=== PATIENT | female | born 1975 ===

== ENCOUNTER 2018-02-05 20:52 | Inpatient (IN) | payer OTHER ==
[2018-02-05 21:24] LABS: MEAN CELL VOLUME 86.9 fl (80.0-105.0); MEAN CORPUSCULAR HEMOGLOBIN 30.4 pg (25.0-35.0); MEAN CORPUSCULAR HGB CONC 34.9 g/dl (31.0-37.0); MEAN PLATELET VOLUME 9.7 fl (7.0-11.0); RBC 4.28 10^6/uL (3.5-6.1); RED CELL DISTRIBUTION WIDTH 13.9 % (11.5-14.5); WHITE BLOOD COUNT 8.8 10^3/ul (4.5-11.0)
[2018-02-05 21:26] LABS: ALB/GLOB RATIO 1.4 (1.1-1.8); ALBUMIN 4.5 g/dL (3.0-4.8); ALT/SGPT 29 U/L (7-56); AST/SGOT 26 U/L (14-36); BLOOD UREA NITROGEN 13 mg/dL (7-21); CALCIUM 9.9 mg/dL (8.4-10.5); GFR AFRICAN-AMERICAN > 60; GFR NON-AFRICAN AMERICAN > 60
--- NOTE | 2018-02-05 21:33 | ED PDOC ---
Arrival/HPI - General Chief Complaint: Seizure Time Seen by Provider: 02/05/18 20:59 Historian: Patient - History of Present Illness Narrative History of Present Illness (Text): 02/05/18 20:55 Gris Monroe is a 42 year old female who presents to the Emergency department brought in by EMS status post syncopal episode prior to arrival. According to , patient had just eaten frozen pizza and fell to the ground. states patient was unresponsive. EMS was notified and patient was subsequently transferred to the hospital for further evaluation. On arrival to ER, patient remains unconscious with tremors noted. Limited HPI and ROS secondary to patient's altered mental status. Time/Duration: Prior to Arrival Symptom Onset: Sudden Symptom Course: Unchanged Activities at Onset: Light Context: Home Past Medical History - Provider Review Nursing Documentation Reviewed: Yes - Infectious Disease Hx of Infectious Diseases: None - Psychiatric Hx Substance Use: No - Anesthesia Hx Anesthesia: No Family/Social History - Physician Review Nursing Documentation Reviewed: Yes Family/Social History: Unknown Family HX Smoking Status: Never Smoked Hx Alcohol Use: No Hx Substance Use: No Allergies/Home Meds Allergies/Adverse Reactions: Allergies No Known Allergies Allergy (Unverified 02/05/18 21:00) Home Medications: Home Meds Medication Instructions Recorded Confirmed No Known Home Med 02/05/18 02/05/18 Review of Systems - Review of Systems Systems not reviewed;Unavailable: Altered Mental Status Cardiovascular: Syncope Physical Exam Vital Signs Reviewed: Yes Vital Signs Temp Pulse Resp BP Pulse Ox 02/05/18 21:37 99.1 F 02/05/18 21:02 99 H 19 147/91 H 100 Temperature: Afebrile Blood Pressure: Normal Pulse: Regular Respiratory Rate: Normal Pain Distress: None Mental Status: Positive for: other (Unresponsive) Finger Stick Blood Glucose: 88 - Systems Exam Head: Present: Atraumatic, Normocephalic Pupils: Present: PERRL Conjunctiva: Present: Normal Ears: Present: Normal, NORMAL TM, Normal Canal. No: Erythema, TM Bulging, Fluid , TM Perf Mouth: Present: Moist Mucous Membranes Pharnyx: Present: Normal. No: ERYTHEMA, EXUDATE, TONSILS ENLARGED, Peritonsilar Swelling, Uvular Deviation, Muffled/Hoarse Voice, Strider, Soft Palate/Uvular Edema Nose (External): Present: Atraumatic Nose (Internal): Present: Normal Inspection Neck: Present: Normal Range of Motion. No: Meningeal Signs, MIDLINE TENDERNESS , Paraspinal Tenderness Respiratory/Chest: Present: Clear to Auscultation, Good Air Exchange. No: Respiratory Distress, Accessory Muscle Use Cardiovascular: Present: Regular Rate and Rhythm, Normal S1, S2. No: Murmurs Abdomen: Present: Normal Bowel Sounds. No: Tenderness, Distention, Peritoneal Signs Upper Extremity: Present: Normal Inspection. No: Cyanosis, Edema Lower Extremity: Present: Normal Inspection. No: Edema Neurological: Present: Other (tremors lower extremities) Skin: Present: Warm, Dry, Normal Color. No: Rashes Psychiatric: Present: Lethargic Medical Decision Making ED Course and Treatment: 02/05/18 20:55 Impression: 42 year old female brought in by EMS s/p syncopal episode prior to arrival. Plan: -- CT Head w/o contrast -- EKG -- Chest X-ray -- Labs, cardiac enzymes -- Ativan -- Reassess and disposition Progress Notes: On arrival to Emergency department, pt placed on monitor. IV site established, IV Ativan given to control seizure. 02/05/18 21:30 Reviewed EKG, sinus tachycardia at 106 bpm. Non-specific ST/T wave changes. 02/05/18 22:03 Reviewed radiology, Chest X-ray shows no acute processes. CT Head shows: Brain: No intracranial hemorrhage. No mass. No definite edema. Ventricles: No hydrocephalus. Bones/joints: No acute fracture. Soft tissues: Unremarkable. Sinuses: Scattered minimal mucosal thickening. RIGHT maxillary retention cyst. Mastoid air cells: No mastoid effusion. Orbits: Unremarkable as visualized. IMPRESSION: 1. No definite acute intracranial abnormality. 2. Incidental/non-acute findings are described above. 02/05/18 22:10 Case discussed with senior medical director computer console operator, who is aware and agrees with plan. 02/05/18 22:[address] Macedo, who is aware and agrees with plan. Accepts pt in to hospitalist service. Pt will go to Telemetry syncope and possible new onset seizure. - Lab Interpretations Lab Results: 02/05/18 20:55 02/05/18 20:55 Lab Results 02/05/18 20:55: TSH 3rd Generation 3.14 02/05/18 20:55: Phosphorus 2.6, Magnesium 2.0 02/05/18 20:55: PT 10.6, INR 0.93, APTT 30.4 02/05/18 20:55: WBC 8.8, RBC 4.28, Hgb 13.0, Hct 37.2, MCV 86.9, MCH 30.4, MCHC 34.9, RDW 13.9, Plt Count 206, MPV 9.7 02/05/18 20:55: Sodium 143, Potassium 3.5 L, Chloride 107, Carbon Dioxide 24, Anion Gap 16, BUN 13, Creatinine 0.7, Est GFR ( Amer) > 60, Est GFR (Non- Af Amer) > 60, Random Glucose 105, Calcium 9.9, Total Bilirubin < 0.1 L, AST 26 , ALT 29, Alkaline Phosphatase 83, Lactate Dehydrogenase 379, Total Creatine Kinase 52, Troponin I < 0.01, Total Protein 7.8, Albumin 4.5, Globulin 3.3, Albumin/Globulin Ratio 1.4 I have reviewed the lab results: Yes - RAD Interpretation Radiology Orders: 02/05/18 21:00 HEAD W/O CONTRAST [CT] Stat 02/05/18 21:03 CHEST PORTABLE [RAD] Stat Quality Control Systems Manager: Radiologist - EKG Interpretation Interpreted by ED Physician: Yes Type: 12 lead EKG - Medication Orders Current Medication Orders: Cyanocobalamin (Vitamin B12 100 Mcg Tab) 100 mcg PO DAILY [facility] Enoxaparin Sodium (Lovenox) 40 mg SC DAILY [facility] PRN Reason: Protocol Folic Acid (Folic Acid) 1 mg PO DAILY [facility] Meclizine HCl (Antivert) 12.5 mg PO TID PRN PRN Reason: Dizziness Pantoprazole Sodium (Protonix Ec Tab) 40 mg PO DAILY [facility] Discontinued Medications Potassium Chloride (Potassium Chloride 10 Meq/100 Ml) 10 meq in 100 mls @ 50 mls/hr IVPB Q2H NEREIDA Stop: 02/06/18 03:14 Last Admin: 02/06/18 02:45 Dose: 50 mls/hr eMAR Start Stop Document 02/06/18 02:45 TTC (Rec: 02/06/18 02:45 TTC [id number]) Intravenous Solution Start Date 02/06/18 Start Time 02:45 End Date 02/06/18 End time 04:45 Total Infusion Time 120 Lorazepam (Ativan) 2 mg IVP ONCE ONE Stop: 02/05/18 21:05 Last Admin: 02/05/18 21:00 Dose: 2 mg IVP Administration Document 02/05/18 21:00 JOL (Rec: 02/05/18 21:12 JOL [id number]) Charges for Administration # of IVP Administrations 1 Lorazepam (Ativan) 2 mg IVP ONCE ONE Stop: 02/05/18 22:33 Last Admin: 02/05/18 22:35 Dose: 2 mg IVP Administration Document 02/05/18 22:35 JOL (Rec: 02/05/18 23:07 JOL [facility]) Charges for Administration # of IVP Administrations 1 - Scribe Statement The provider has reviewed the documentation as recorded by the Scribghazala Garber All medical record entries made by the Scribe were at my direction and personally dictated by me. I have reviewed the chart and agree that the record accurately reflects my personal performance of the history, physical exam, medical decision making, and the department course for this patient. I have also personally directed, reviewed, and agree with the discharge instructions and disposition. Disposition/Present on Arrival - Present on Arrival Any Indicators Present on Arrival: No History of DVT/PE: No History of Uncontrolled Diabetes: No Urinary Catheter: No History of Decub. Ulcer: No History Surgical Site Infection Following: None - Disposition Have Diagnosis and Disposition been Completed?: Yes Diagnosis: Syncope, New onset seizure Disposition: HOSPITALIZED Disposition Time: 22:21 Patient Plan: Observation Patient Problems: Current Active Problems Problem Status Onset New onset seizure Acute Syncope Acute Condition: STABLE
[2018-02-05 21:37] LABS: TROPONIN I < 0.01 ng/mL
[2018-02-05 21:39] LABS: INR 0.93 (0.93-1.08); PARTIAL THROMBOPLASTIN TIME 30.4 Seconds (25.1-36.5); PROTHROMBIN TIME 10.6 SECONDS (9.4-12.5)
--- NOTE | 2018-02-05 21:58 | CT ---
EXAM: CT Head Without Intravenous Contrast CLINICAL HISTORY: 42 years old, female; Signs and symptoms; Other: Seizure TECHNIQUE: Axial computed tomography images of the head/brain without intravenous contrast. All CT scans at this facility use one or more dose reduction techniques, viz.: automated exposure control; ma/kV adjustment per patient size (including targeted exams where dose is matched to indication; i.e. head); or iterative reconstruction technique. Coronal and sagittal reformatted images were created and reviewed. COMPARISON: No relevant prior studies available. FINDINGS: Brain: No intracranial hemorrhage. No mass. No definite edema. Ventricles: No hydrocephalus. Bones/joints: No acute fracture. Soft tissues: Unremarkable. Sinuses: Scattered minimal mucosal thickening. RIGHT maxillary retention cyst. Mastoid air cells: No mastoid effusion. Orbits: Unremarkable as visualized. IMPRESSION: 1. No definite acute intracranial abnormality. 2. Incidental/non-acute findings are described above.
--- NOTE | 2018-02-05 23:06 | CP.PCM.HP ---
<Pebbles Wolff - Last Filed: 02/06/18 03:41> History of Present Illness - History of Present Illness History of Present Illness: PGY-2 H&P for hospitalist service 42 yo female from [place] who presents to the Emergency department brought in by EMS status post syncopal episode prior to arrival. According to , patient had just eaten frozen pizza and fell to the ground. states patient was unresponsive with generalized tonic clonic movements. EMS was notified and patient was subsequently transferred to the hospital for further evaluation. Patient states that she had a similar episode previously however seh did nit loss consciousness but began to shake. Per ED note, on arrival to ER , patient remained unconscious with generalized tonic clonic movements. Patient states that she feels weak, and dizzy especially with movement. She denies chest pain, sob, abd pain, n/v, urinary symptoms. PMH: family history: mother thyroid disease, diabetes, father heart disease social history: denies smoking, alcohol use, illicit drug use allergy: seasonal home meds: propanolol Review of Systems - Review of Systems All systems: reviewed and no additional remarkable complaints except Past Patient History - Infectious Disease Hx of Infectious Diseases: None - Past Social History Smoking Status: Never Smoked - PSYCHIATRIC Hx Substance Use: No - SURGICAL HISTORY Hx Surgeries: No - ANESTHESIA Hx Anesthesia: No Meds Allergies/Adverse Reactions: Allergies Allergy/AdvReac Type Severity Reaction Status Date / Time No Known Allergies Allergy Unverified 02/05/18 21:00 Physical Exam - Constitutional Appears: No Acute Distress - Head Exam Head Exam: ATRAUMATIC, NORMAL INSPECTION, NORMOCEPHALIC - Eye Exam Eye Exam: EOMI, Normal appearance - ENT Exam ENT Exam: Mucous Membranes Moist - Respiratory Exam Respiratory Exam: Clear to Auscultation Bilateral, NORMAL BREATHING PATTERN. absent: Rhonchi, Wheezes, Respiratory Distress - Cardiovascular Exam Cardiovascular Exam: REGULAR RHYTHM, +S1, +S2. absent: Diastolic murmur, Systolic Murmur - GI/Abdominal Exam GI & Abdominal Exam: Normal Bowel Sounds, Soft. absent: Distended, Tenderness - Extremities Exam Extremities exam: Positive for: normal inspection - Back Exam Back exam: NORMAL INSPECTION - Neurological Exam Neurological exam: Alert, Oriented x3 - Skin Skin Exam: Dry, Intact, Normal Color, Warm Results - Vital Signs Recent Vital Signs: Last Vital Signs Temp 99.1 F 02/05/18 21:37 Pulse 99 H 02/05/18 21:02 Resp 19 02/05/18 21:02 BP 147/91 H 02/05/18 21:02 Pulse Ox 100 02/05/18 21:02 - Labs Result Diagrams: 02/05/18 20:55 02/05/18 20:55 Assessment & Plan - Assessment and Plan (Free Text) Assessment: 42 yo female from [place] who presents s/p syncopal episode and possible seizure. Plan: 1. syncopal episode with possible seizure - CT head showed no acute findings - patient received ativan in ED - start vit B12, folate - meclizine prn - orthostatics ordered - TSH, mag, and phos ordered - neurochecks - consider cardio work up for syncope - neuro consult 2. hypokalemia - 3.5 on admission - replaced - repeat AM labs ppx GI- protonix DVT- lovenox <Berna Macedo - Last Filed: 02/06/18 06:28> Present on Admission - Present on Admission Any Indicators Present on Admission: No History of DVT/PE: No History of Uncontrolled Diabetes: No Urinary Catheter: No Decubitus Ulcer Present: No Results - Vital Signs Recent Vital Signs: Last Vital Signs Temp 98.2 F 02/06/18 02:00 Pulse 71 02/06/18 02:00 Resp 19 02/06/18 02:00 BP 158/78 H 02/06/18 02:00 Pulse Ox 96 02/06/18 02:00 - Labs Result Diagrams: 02/05/18 20:55 02/05/18 20:55 Attending/Attestation - Attestation I have personally seen and examined this patient.: Yes I have fully participated in the care of the patient.: Yes I have reviewed all pertinent clinical information: Yes Notes (Text): 02/06/18 06:26 Patient was seen when she was in the ER. Agree with history, physical examination, assessment and plan. syncope. S/P fall. Head contusion. Dizziness- on and off 4 months. Sinsu tachycardia on EKG. Tonic clonic movement extremitities. Loss of consciousness. Hypokalemia. History of x 1. History of sinusitis. History of hypotension x 2. History of heart burn. History of being on Propranolol. History of low back pain, right sciatica. Family history DM-Mother , Aunt. Family history thyroid disease-Mother. Family history of heart disease-Father. Originally from [place], with child. LMP:Now. .
[2018-02-06 07:00] LABS: BASO # 0.02 K/mm3 (0.0-2.0); BASO % 0.3 % (0.0-3.0); EOS # 0.1 (0.0-0.7); EOS % 1.4 % (1.5-5.0); GRAN # 2.71 (1.4-6.5); GRAN % 47.3 % (50.0-68.0); HEMOGLOBIN 11.2 g/dL (12.0-16.0); LYMPH # 2.5 (1.2-3.4); LYMPH % 43.1 % (22.0-35.0); MEAN CELL VOLUME 86.8 fl (80.0-105.0); MEAN CORPUSCULAR HEMOGLOBIN 29.6 pg (25.0-35.0); MEAN PLATELET VOLUME 9.8 fl (7.0-11.0); MONO # 0.5 (0.1-0.6); MONO % 7.9 % (1.0-6.0); RBC 3.79 10^6/uL (3.5-6.1); RED CELL DISTRIBUTION WIDTH 13.8 % (11.5-14.5); WHITE BLOOD COUNT 5.7 10^3/ul (4.5-11.0)
[2018-02-06 07:16] LABS: ALB/GLOB RATIO 1.2 (1.1-1.8); ALBUMIN 3.5 g/dL (3.0-4.8); ALT/SGPT 23 U/L (7-56); AST/SGOT 20 U/L (14-36); BLOOD UREA NITROGEN 10 mg/dL (7-21); CALCIUM 9.5 mg/dL (8.4-10.5); GFR AFRICAN-AMERICAN > 60; GFR NON-AFRICAN AMERICAN > 60
--- NOTE | 2018-02-06 08:26 | RAD ---
HISTORY: seizure COMPARISON: No prior. FINDINGS: LUNGS: No active pulmonary disease. PLEURA: No significant pleural effusion identified, no pneumothorax apparent. CARDIOVASCULAR: Normal. OSSEOUS STRUCTURES: No significant abnormalities. VISUALIZED UPPER ABDOMEN: Normal. OTHER FINDINGS: None. IMPRESSION: No active disease.
--- NOTE | 2018-02-06 10:03 | CARD ---
APPROVED REPORT EKG Measurement Heart [id number] <Conclusion> Sinus tachycardia Otherwise normal ECG
--- NOTE | 2018-02-06 10:38 | MRI ---
PROCEDURE: MRI BRAIN WITHOUT CONTRAST HISTORY: New onset seizure COMPARISON: Noncontrast head CT from 02/05/2018. TECHNIQUE: Multiplanar, multisequence MR images of the brain were obtained without intravenous contrast enhancement. FINDINGS: HEMORRHAGE: None DWI: No evidence of an acute or early subacute infarction. BRAIN PARENCHYMA: Renee-white matter differentiation is preserved. There is no mass, mass effect or abnormal extra-axial fluid collection. There is no territorial infarction. The midline sagittal structures are normal. The hippocampi by are symmetric with normal signal intensity and architecture. There is no evidence for mesial temporal sclerosis. VENTRICLES: The ventricles are normal in size, shape and configuration. CRANIUM: There is normal bone marrow signal pattern. ORBITS: Grossly unremarkable. PARANASAL SINUSES/MASTOIDS: There is mild mucosal thickening in the paranasal sinuses, worse in the ethmoid air cells and a retention cyst/ polyp in the right maxillary sinus. VASCULAR SYSTEM: There are normal signal voids in the larger intracranial arteries. OTHER FINDINGS: None. IMPRESSION: Normal non contrast MRI of the brain.
--- NOTE | 2018-02-06 10:53 | MRI ---
PROCEDURE: Magnetic Resonance Angiography Brain HISTORY: New onset seizure COMPARISON: None available. TECHNIQUE: 3D time of flight MR angiography of the intracranial arteries was performed. Rotating maximum intensity projection images were generated. FINDINGS: INTERNAL CAROTID ARTERIES: Normal flow related signal. The skull base, petrous, cavernous and supraclinoid segments are bilaterally widely patient. ANTERIOR CEREBRAL ARTERIES: Normal flow related signal. The right A1 segment is hypoplastic, an anatomic variant with A1 and A2 segments are widely patent. Smaller distal branches unremarkable, as visualized. MIDDLE CEREBRAL ARTERIES: Normal flow related signal. M1 and M2 segments are widely patent. Perisylvian branches grossly symmetric. POSTERIOR CIRCULATION: Basilar Artery: Normal flow related signal. Distal Vertebral Arteries: Normal flow related signal. Posterior Cerebral Arteries: Normal flow related signal. Posterior Inferior Cerebellar Arteries: Normal flow related signal. ANEURYSM/ VASCULAR MALFORMATIONS: None. OTHER FINDINGS: None. IMPRESSION: Normal MR angiography of the brain.
--- NOTE | 2018-02-06 11:15 | MRI ---
PROCEDURE: MR Angiography of the neck without contrast HISTORY: New onset seizure COMPARISON: None available. TECHNIQUE: 3D [id number] angiography of the neck was performed. Rotating maximum intensity projection images of the cervical carotid and vertebral arteries were generated. The origins of the common carotid arteries were not visualized, which is a limitation inherent to the non-contrast time of flight technique. FINDINGS: RIGHT CAROTID ARTERIES: Common Carotid Artery: Normal. Carotid Bifurcation: Normal. Internal Carotid Artery:Normal. External Carotid Artery (proximal branches): Normal. LEFT CAROTID ARTERIES: Common Carotid Artery: Normal. Carotid Bifurcation: Normal. Internal Carotid Artery:Normal. External Carotid Artery (proximal branches): Normal. VERTEBRAL ARTERIES: Right Vertebral Artery: Normal. Left Vertebral Artery: Normal. OTHER FINDINGS: None. IMPRESSION: Normal MR Angiography of the neck.
[2018-02-06] MEDS: Pantoprazole 40 mg EC Tab PO SCH (11:23)
[2018-02-06] MEDS: Enoxaparin 40 mg Syringe SC SCH (11:23)
--- NOTE | 2018-02-06 16:38 | CP.PCM.CON ---
History of Present Illness - History of Present Illness History of Present Illness: Ms. Monroe is a 42-year-old woman with no significant past medical history, who has apparently been fasting and not drinking more than 8-10 ounces of water daily for the last month, who states that she went to watch TV with her yesterday and she felt dizzy, light-headed, nauseous, and lost consciousness. Her witnessed her having generalized tonic-clonic movements. She did not wake up for several minutes. She recalls waking up in the ED and was confused and felt very tired. She did not have any urinary/bowel incontinence, injuries or tongue biting. MRI/MRA brain/neck were normal. EEG was normal. Review of Systems - Review of Systems All systems: reviewed and no additional remarkable complaints except Past Patient History - Infectious Disease Hx of Infectious Diseases: None - Past Social History Smoking Status: Never Smoked - MUSCULOSKELETAL/RHEUMATOLOGICAL Hx Falls: No - PSYCHIATRIC Hx Substance Use: No - SURGICAL HISTORY Hx Surgeries: No - ANESTHESIA Hx Anesthesia: No Meds Allergies/Adverse Reactions: Allergies Allergy/AdvReac Type Severity Reaction Status Date / Time No Known Allergies Allergy Unverified 02/05/18 21:00 - Medications Medications: Current Medications Acetaminophen (Tylenol 325mg Tab) 650 mg PO Q6H PRN PRN Reason: Headache Cyanocobalamin (Vitamin B12 100 Mcg Tab) 100 mcg PO DAILY [facility] Last Admin: 02/06/18 11:22 Dose: 100 mcg Enoxaparin Sodium (Lovenox) 40 mg SC DAILY [facility] PRN Reason: Protocol Last Admin: 02/06/18 11:23 Dose: 40 mg Folic Acid (Folic Acid) 1 mg PO DAILY [facility] Last Admin: 02/06/18 11:22 Dose: 1 mg Lorazepam (Ativan) 1 mg IVP Q2H PRN; Protocol PRN Reason: Seizures Meclizine HCl (Antivert) 12.5 mg PO TID PRN PRN Reason: Dizziness Pantoprazole Sodium (Protonix Ec Tab) 40 mg PO DAILY [facility] Last Admin: 02/06/18 11:23 Dose: 40 mg Physical Exam - Constitutional Appears: Well - Head Exam Head Exam: ATRAUMATIC, NORMAL INSPECTION, NORMOCEPHALIC - Eye Exam Eye Exam: EOMI, Normal appearance, PERRL - ENT Exam ENT Exam: Mucous Membranes Moist, Normal Exam - Neck Exam Neck exam: Positive for: Normal Inspection - Cardiovascular Exam Cardiovascular Exam: REGULAR RHYTHM - GI/Abdominal Exam GI & Abdominal Exam: Normal Bowel Sounds, Soft. absent: Tenderness - Rectal Exam Rectal Exam: Deferred - Neurological Exam Neurological exam: Alert, CN II-XII Intact, Normal Gait, Oriented x3, Reflexes Normal - Psychiatric Exam Psychiatric exam: Normal Affect, Normal Mood Results - Vital Signs Recent Vital Signs: Last Vital Signs Temp 97.9 F 02/06/18 12:00 Pulse 76 02/06/18 14:00 Resp 18 02/06/18 12:00 BP 103/58 L 02/06/18 12:00 Pulse Ox 98 02/06/18 06:00 - Labs Result Diagrams: 02/06/18 06:20 02/06/18 06:20 Assessment & Plan (1) New onset seizure Assessment and Plan: The patient appears to have had an unprovoked seizure. MRI and EEG are normal. She may have had a previous episode, but this is not clear. Her chance of having a subsequent seizure is about 30% if she only had one lifetime seizure, and 60-70% if it was actually two seizures. I offered her to start on Keppra 500 mg BID, but she did not seem certain that she wanted to start it. She wanted to discuss with her . Since I was not sure if she did have a seizure prior to this one, and the history of the previous event was that she only had shaking movements without loss of consciousness, I did not insist. There are no further recommended tests at this time. She is restricted from driving for the next 90 days, and I instructed her to not operate heavy machinery to swim/go into deep meeks alone. The patient may follow up with me as an outpatient. Status: Acute Priority: High
[2018-02-07 06:31] LABS: BASO # 0.01 K/mm3 (0.0-2.0); BASO % 0.2 % (0.0-3.0); EOS # 0.2 (0.0-0.7); EOS % 2.8 % (1.5-5.0); GRAN # 1.69 (1.4-6.5); GRAN % 31.8 % (50.0-68.0); HEMOGLOBIN 11.8 g/dL (12.0-16.0); LYMPH # 3.1 (1.2-3.4); LYMPH % 57.7 % (22.0-35.0); MEAN CELL VOLUME 87.4 fl (80.0-105.0); MEAN CORPUSCULAR HEMOGLOBIN 30.3 pg (25.0-35.0); MEAN CORPUSCULAR HGB CONC 34.7 g/dl (31.0-37.0); MEAN PLATELET VOLUME 9.5 fl (7.0-11.0); MONO # 0.4 (0.1-0.6); MONO % 7.5 % (1.0-6.0); RBC 3.89 10^6/uL (3.5-6.1); RED CELL DISTRIBUTION WIDTH 13.8 % (11.5-14.5); WHITE BLOOD COUNT 5.3 10^3/ul (4.5-11.0)
[2018-02-07 06:50] VITALS: O2SAT 97
[2018-02-07 07:02] LABS: ALB/GLOB RATIO 1.2 (1.1-1.8); ALBUMIN 3.6 g/dL (3.0-4.8); ALT/SGPT 30 U/L (7-56); AST/SGOT 22 U/L (14-36); BLOOD UREA NITROGEN 12 mg/dL (7-21); CALCIUM 9.4 mg/dL (8.4-10.5); GFR AFRICAN-AMERICAN > 60; GFR NON-AFRICAN AMERICAN > 60
[2018-02-07] MEDS: Pantoprazole 40 mg EC Tab PO SCH (11:09)
[2018-02-07] MEDS: Enoxaparin 40 mg Syringe SC SCH (11:10)
[2018-02-07 13:06] VITALS: BP 110/63; RESP 18; TEMP 97.9
--- NOTE | 2018-02-07 14:33 | CARD ---
APPROVED REPORT EXAM: Two-dimensional and M-mode echocardiogram with Doppler and color Doppler. INDICATION Syncope 2D DIMENSIONS Left Atrium (2D)2.7 (1.6-4.0cm)IVSd0.9 (0.7-1.1cm) LVDd4.6 (3.9-5.9cm)PWd1.1 (0.7-1.1cm) LVDs2.8 (2.5-4.0cm)FS (%) 38.4 % LVEF (%)68.7 (>50%) M-Mode DIMENSIONS Aortic Root2.40 (2.2-3.7cm)Aortic Cusp Exc.2.00 (1.5-2.0cm) Aortic Valve AoV Peak Roljhqfg353.0cm/Lay Peak GR.6mmHg Mitral Valve MV E Ootpvlht58.3cm/sMV A Gndijorf52.1cm/sE/A ratio1.5 TDI E/Lateral E'0.0E/Medial E'0.0 Tricuspid Valve TR Peak [id number]/sRAP [id number] Peak Gr.7mmHg [id number] LEFT VENTRICLE The left ventricle is normal size. There is normal left ventricular wall thickness. The left ventricular function is normal. The left ventricular ejection fraction is within the normal range. There is normal LV segmental wall motion. The left ventricular diastolic function is normal. RIGHT VENTRICLE The right ventricle is normal size. There is normal right ventricular wall thickness. The right ventricular systolic function is normal. ATRIA The left atrium size is normal. The right atrium size is normal. AORTIC VALVE The aortic valve is normal in structure. No aortic regurgitation is present. There is no aortic valvular stenosis. MITRAL VALVE The mitral valve is normal in structure. There is no mitral valve regurgitation noted. TRICUSPID VALVE The tricuspid valve is normal in structure. There is trace tricuspid regurgitation. GREAT VESSELS The aortic root is normal in size. PERICARDIAL EFFUSION There is no pericardial effusion. <Conclusion> The left ventricle is normal size. There is normal left ventricular wall thickness. The left ventricular function is normal. The left ventricular ejection fraction is within the normal range. There is normal LV segmental wall motion. The left ventricular diastolic function is normal.
--- NOTE | 2018-02-07 14:42 | CP.PCM.DIS ---
<Jus Peng - Last Filed: 02/07/18 16:21> Provider - Provider Date of Admission: 02/06/18 13:51 Attending physician: Reed Klein MD Primary care physician: Jovanny Hancock MD Consults: Dr. Koch: Neurology Time Spent in preparation of Discharge (in minutes): 45 Hospital Course - Lab Results Lab Results: Most Recent Lab Values WBC 5.3 10^3/ul (4.5-11.0) 02/07/18 05:30 RBC 3.89 10^6/uL (3.5-6.1) 02/07/18 05:30 Hgb 11.8 g/dL (12.0-16.0) L 02/07/18 05:30 Hct 34.0 % (36.0-48.0) L 02/07/18 05:30 MCV 87.4 fl (80.0-105.0) 02/07/18 05:30 MCH 30.3 pg (25.0-35.0) 02/07/18 05:30 MCHC 34.7 g/dl (31.0-37.0) 02/07/18 05:30 RDW 13.8 % (11.5-14.5) 02/07/18 05:30 Plt Count 180 10^3/uL (120.0-450.0) 02/07/18 05:30 MPV 9.5 fl (7.0-11.0) 02/07/18 05:30 Gran % 31.8 % (50.0-68.0) L 02/07/18 05:30 Lymph % (Auto) 57.7 % (22.0-35.0) H 02/07/18 05:30 Dane % (Auto) 7.5 % (1.0-6.0) H 02/07/18 05:30 Eos % (Auto) 2.8 % (1.5-5.0) 02/07/18 05:30 Baso % (Auto) 0.2 % (0.0-3.0) 02/07/18 05:30 Gran # 1.69 (1.4-6.5) 02/07/18 05:30 Lymph # (Auto) 3.1 (1.2-3.4) 02/07/18 05:30 Dane # (Auto) 0.4 (0.1-0.6) 02/07/18 05:30 Eos # (Auto) 0.2 (0.0-0.7) 02/07/18 05:30 Baso # (Auto) 0.01 K/mm3 (0.0-2.0) 02/07/18 05:30 PT 10.6 SECONDS (9.4-12.5) 02/05/18 20:55 INR 0.93 (0.93-1.08) 02/05/18 20:55 APTT 30.4 Seconds (25.1-36.5) 02/05/18 20:55 Sodium 142 mmol/L (132-148) 02/07/18 05:30 Potassium 3.8 mmol/L (3.6-5.0) 02/07/18 05:30 Chloride 108 mmol/L (98-107) H 02/07/18 05:30 Carbon Dioxide 25 mmol/L (21-33) 02/07/18 05:30 Anion Gap 12 (10-20) 02/07/18 05:30 BUN 12 mg/dL (7-21) 02/07/18 05:30 Creatinine 0.7 mg/dl (0.7-1.2) 02/07/18 05:30 Est GFR ( Amer) > 60 02/07/18 05:30 Est GFR (Non-Af Amer) > 60 02/07/18 05:30 Random Glucose 90 mg/dL (70-110) 02/07/18 05:30 Hemoglobin A1c 5.4 % (4.2-6.5) 02/06/18 12:06 Calcium 9.4 mg/dL (8.4-10.5) 02/07/18 05:30 Phosphorus 2.6 mg/dL (2.5-4.5) 02/05/18 20:55 Magnesium 2.0 mg/dL (1.7-2.2) 02/05/18 20:55 Total Bilirubin < 0.1 mg/dL (0.2-1.3) L 02/07/18 05:30 AST 22 U/L (14-36) 02/07/18 05:30 ALT 30 U/L (7-56) 02/07/18 05:30 Alkaline Phosphatase 52 U/L (38-126) 02/07/18 05:30 Lactate Dehydrogenase 379 U/L (333-699) 02/05/18 20:55 Total Creatine Kinase 52 U/L (35-230) 02/05/18 20:55 Troponin I < 0.01 ng/mL 02/05/18 20:55 Total Protein 6.5 g/dL (5.8-8.3) 02/07/18 05:30 Albumin 3.6 g/dL (3.0-4.8) 02/07/18 05:30 Globulin 2.9 gm/dL 02/07/18 05:30 Albumin/Globulin Ratio 1.2 (1.1-1.8) 02/07/18 05:30 Vitamin B12 378 pg/mL (239-931) 02/06/18 06:50 Folate 9.0 ng/mL 02/06/18 06:50 TSH 3rd Generation 3.14 mIU/mL (0.46-4.68) 02/05/18 20:55 - Hospital Course Hospital Course: HPI on day of admission: 42 yo female from [place] who presents to the Emergency department brought in by EMS status post syncopal episode prior to arrival. According to , patient had just eaten frozen pizza and fell to the ground. states patient was unresponsive with generalized tonic clonic movements. EMS was notified and patient was subsequently transferred to the hospital for further evaluation. Patient states that she had a similar episode previously however seh did nit loss consciousness but began to shake. Per ED note, on arrival to ER , patient remained unconscious with generalized tonic clonic movements. Patient states that she feels weak, and dizzy especially with movement. She denies chest pain, sob, abd pain, n/v, urinary symptoms. Throughout her hospital course, patient had the following imaging studies done: Head CT - no acute disease MRI Brain - no acute disease MRA Head - no acute disease MRA NEck - no acute disease EEG - normal ECHO - normal study. Patient was still dizzy on the day of her admission, but orthostatics were negative. Upon further review, patient stated that she had just finished a 21 day fast in which she had dietary changes that included no dairy and no meats. Patient also stated that she has felt this dizziness in the past when she does not eat well. Patient was advised that she needs to keep hydrated and incorporate more protein into her diet. Patient's orthostatics were negative. On day 2 of admission, patient was deemed stable to discharge by neurology. Her dizziness resolved and she was stable for discharge. Discharge Exam - Head Exam Head Exam: ATRAUMATIC, NORMAL INSPECTION, NORMOCEPHALIC - Eye Exam Eye Exam: EOMI, Normal appearance, PERRL Pupil Exam: NORMAL ACCOMODATION, PERRL - Respiratory Exam Respiratory Exam: Clear to PA & Lateral, NORMAL BREATHING PATTERN, UNREMARKABLE - Cardiovascular Exam Cardiovascular Exam: REGULAR RHYTHM, RRR. absent: Diastolic murmur, Systolic Murmur - GI/Abdominal Exam GI & Abdominal Exam: Normal Bowel Sounds, Unremarkable - Exam Exam: NORMAL INSPECTION - Neurological Exam Neurological exam: Alert, CN II-XII Intact, Normal Gait, Oriented x3, Reflexes Normal - Psychiatric Exam Psychiatric exam: Normal Affect, Normal Mood - Skin Skin Exam: Dry, Intact, Normal Color, Warm Discharge Plan - Follow Up Plan Condition: GOOD Disposition: HOME/ ROUTINE Instructions: Syncope (Fainting), Seizures, Adult (DC), Seizures Additional Instructions: 1. Please follow up with Dr. Ceferino Koch as an outpatient in two weeks 2. Please remember - you are not allowed to drive for 90 days! You can cause permanent disability or to yourself or others. Please also refrain from swimming in pools by yourself or operating any heavy machinery by yourself, or any other activity that could pose any kind of a fall or accident threat 3. Please return to the ED if your symptoms return or worsen. Diet: Heart Healthy Patient states she wishes to refuse the flu and the pneumococcal vaccines at time of this writing. Referrals: Ceferino Koch MD [Staff Provider] - Jovanny Hancock MD [Primary Care Provider] - <Reed Klein - Last Filed: 02/07/18 17:03> Provider - Provider Date of Admission: 02/06/18 13:51 Attending physician: Reed Klein MD Primary care physician: Jovanny Hancock MD Hospital Course - Lab Results Lab Results: Most Recent Lab Values WBC 5.3 10^3/ul (4.5-11.0) 02/07/18 05:30 RBC 3.89 10^6/uL (3.5-6.1) 02/07/18 05:30 Hgb 11.8 g/dL (12.0-16.0) L 02/07/18 05:30 Hct 34.0 % (36.0-48.0) L 02/07/18 05:30 MCV 87.4 fl (80.0-105.0) 02/07/18 05:30 MCH 30.3 pg (25.0-35.0) 02/07/18 05:30 MCHC 34.7 g/dl (31.0-37.0) 02/07/18 05:30 RDW 13.8 % (11.5-14.5) 02/07/18 05:30 Plt Count 180 10^3/uL (120.0-450.0) 02/07/18 05:30 MPV 9.5 fl (7.0-11.0) 02/07/18 05:30 Gran % 31.8 % (50.0-68.0) L 02/07/18 05:30 Lymph % (Auto) 57.7 % (22.0-35.0) H 02/07/18 05:30 Dane % (Auto) 7.5 % (1.0-6.0) H 02/07/18 05:30 Eos % (Auto) 2.8 % (1.5-5.0) 02/07/18 05:30 Baso % (Auto) 0.2 % (0.0-3.0) 02/07/18 05:30 Gran # 1.69 (1.4-6.5) 02/07/18 05:30 Lymph # (Auto) 3.1 (1.2-3.4) 02/07/18 05:30 Dane # (Auto) 0.4 (0.1-0.6) 02/07/18 05:30 Eos # (Auto) 0.2 (0.0-0.7) 02/07/18 05:30 Baso # (Auto) 0.01 K/mm3 (0.0-2.0) 02/07/18 05:30 PT 10.6 SECONDS (9.4-12.5) 02/05/18 20:55 INR 0.93 (0.93-1.08) 02/05/18 20:55 APTT 30.4 Seconds (25.1-36.5) 02/05/18 20:55 Sodium 142 mmol/L (132-148) 02/07/18 05:30 Potassium 3.8 mmol/L (3.6-5.0) 02/07/18 05:30 Chloride 108 mmol/L (98-107) H 02/07/18 05:30 Carbon Dioxide 25 mmol/L (21-33) 02/07/18 05:30 Anion Gap 12 (10-20) 02/07/18 05:30 BUN 12 mg/dL (7-21) 02/07/18 05:30 Creatinine 0.7 mg/dl (0.7-1.2) 02/07/18 05:30 Est GFR ( Amer) > 60 02/07/18 05:30 Est GFR (Non-Af Amer) > 60 02/07/18 05:30 Random Glucose 90 mg/dL (70-110) 02/07/18 05:30 Hemoglobin A1c 5.4 % (4.2-6.5) 02/06/18 12:06 Calcium 9.4 mg/dL (8.4-10.5) 02/07/18 05:30 Phosphorus 2.6 mg/dL (2.5-4.5) 02/05/18 20:55 Magnesium 2.0 mg/dL (1.7-2.2) 02/05/18 20:55 Total Bilirubin < 0.1 mg/dL (0.2-1.3) L 02/07/18 05:30 AST 22 U/L (14-36) 02/07/18 05:30 ALT 30 U/L (7-56) 02/07/18 05:30 Alkaline Phosphatase 52 U/L (38-126) 02/07/18 05:30 Lactate Dehydrogenase 379 U/L (333-699) 02/05/18 20:55 Total Creatine Kinase 52 U/L (35-230) 02/05/18 20:55 Troponin I < 0.01 ng/mL 02/05/18 20:55 Total Protein 6.5 g/dL (5.8-8.3) 02/07/18 05:30 Albumin 3.6 g/dL (3.0-4.8) 02/07/18 05:30 Globulin 2.9 gm/dL 02/07/18 05:30 Albumin/Globulin Ratio 1.2 (1.1-1.8) 02/07/18 05:30 Vitamin B12 378 pg/mL (239-931) 02/06/18 06:50 Folate 9.0 ng/mL 02/06/18 06:50 TSH 3rd Generation 3.14 mIU/mL (0.46-4.68) 02/05/18 20:55 Attending/Attestation - Attestation I have personally seen and examined this patient.: Yes I have fully participated in the care of the patient.: Yes I have reviewed all pertinent clinical information, including history, physical exam and plan: Yes Notes (Text): I have seen and examined the patient at bedside. Agree with the above note with the following additions/ exceptions: Briefly this is 42 year old female who was brought for evaluation of syncope and found to have tonic clonic movements in ED. Syncope was secondary to seizure. Episode was followed by postictal confusion. Neurology consult appreciated. Neuro and cardio work up negative. Dietary modifications recommended. Advised her to have increase dietary protein intake to avoid fluctuation in the blood sugar which she is experiencing after drinking juice. Patient's orthostatics were negative. upon discharge patient will be followed by Dr Hancock. Dr Reed klein
[2018-02-07 14:52] VITALS: PULSE 75
== END 2018-02-07 17:00 | disposition home or self-care (01) | DRG 889 ==
LOC: ED 20:52 → ERH 22:14 → 3RSO 02-06 → OBSVTOIN 02-06 13:51
PROVIDERS: ADMIT Internal Medicine; ATTEND Hospitalist
DX: R56.9 Unspecified convulsions (principal); E87.6 Hypokalemia; R55 Syncope and collapse; Z83.3 Family history of diabetes mellitus; Z82.49 Family history of ischemic heart disease and other diseases of the circulatory system; Z91.81 History of falling